=== PATIENT | female | born 1965 | race Caucasian/White ===

== ENCOUNTER 2020-12-15 03:23 | Emergency (ER) | payer BC ==
[2020-12-15] MEDS ORDERED: Famotidine 20 MG/2 ML SDV IVPUSH ONE (03:55)
[2020-12-15] MEDS ORDERED: Lactated Ringers 1,000 ML IV ONE (03:55)
[2020-12-15] MEDS ORDERED: Alum Hydrox/Mag Hydrox/Simeth 15 ML, Lidocaine 2% 5 ML PO ONE ×2 (03:55)
[2020-12-15] MEDS ORDERED: Ondansetron 4 MG/2 ML SDV IVPUSH ONE (03:55)
--- NOTE | 2020-12-15 04:04 | EDM.PDOC ---
<Bobby Garay - Last Filed: 12/15/20 06:54> ED HPI GENERAL MEDICAL PROBLEM - General Chief Complaint: Abdominal Pain Stated Complaint: STOMACH PAIN Time Seen by Provider: 12/15/20 03:27 - History of Present Illness INITIAL COMMENTS - FREE TEXT/NARRATIVE: CHIEF COMPLAINT(S): Abdominal pain HISTORY OF PRESENT ILLNESS: This is a 55-year-old woman with a past medical history of acid reflux who comes to the emergency department with a chief complaint of abdominal pain. The patient states that prior to arrival upon awakening she started to experience severe epigastric pain which she describes as intermittent rated 6 out of 10 pain. She states that it radiates to her back. She denies any associated nausea or vomiting. She denies any chest pain or shortness of breath. She states that is exacerbated after she drinks some water. She denies any relieving factors. She has not yet taken any pain medication. She denies a history of CAD, CHF or history of pancreatitis. She denies any other symptoms. REVIEW OF SYSTEMS: Constitutional: Denies fever, chills. Eyes: Denies eye pain Ears, Nose, Mouth, & Throat: Denies earache Cardiovascular: Denies chest pain Respiratory: Denies shortness of breath Gastrointestinal: Positive for abdominal pain. Denies nausea, vomiting, diarrhea, hematochezia, hematemesis, bilious emesis Genitourinary: Denies hematuria Skin:Denies a rash MSK: Denies joint pain Neurological: Denies blurred vision, numbness, tingling, weakness Psychiatric: Denies depression PAST MEDICAL HISTORY: As per history of present illness and as reviewed below otherwise noncontributory. SURGICAL HISTORY: As per history of present illness and as reviewed below otherwise noncontributory. SOCIAL HISTORY: As per history of present illness and as reviewed below otherwise noncontributory. FAMILY HISTORY: As per history of present illness and as reviewed below otherwise noncontributory. EXAMINATION OF ORGAN SYSTEMS/BODY AREAS: Constitutional: Blood pressure is 128/51, heart rate 70, respiratory rate 18 with an oxygen saturation 97% on room air. Temperature 36.0 General: Overall well-appearing woman who is in no acute distress. Obese. Psychiatric: Appropriate mood and affect. Eyes: No scleral icterus or conjunctival erythema ENMT: Moist mucous membranes. No pharyngeal erythema Cardiovascular: Regular, rate, and rhythm. No gallops, murmurs, or rubs. Bila teral upper extremity pulses symmetric and intact. No peripheral edema. No JVD. Respiratory: Lungs clear to auscultation bilaterally. No wheezes, rales, or rhonchi. Gastrointestinal: Soft, tenderness to palpation in the epigastric and right upper quadrant. Nondistended. No rebound or guarding. Negative Duckworth's. Negative McBurney's. Normoactive bowel sounds Genitourinary: No suprapubic tenderness Musculoskeletal: Normal range of motion. Skin: No lesions or abrasions. Neurological: Alert, GCS 15 MEDICAL DECISION MAKING AND COURSE IN THE ED WITH INTERPRETATION/REVIEW OF DIAGNOSTIC STUDIES: This is a 55-year-old woman with a past medical history of acid reflux who comes to the emergency department with acute onset epigastric pain with radiation to her back. The patient has stable vital signs at this time. Differential does include peptic ulcer disease, gastritis, pancreatitis, cholelithiasis. At this time we will provide the patient with 1 L of lactated Ringer's bolus. We will provide the patient with GI cocktail, 20 mg of IV famotidine, and Zofran for nausea. We will obtain CBC, CMP, lipase. We will reevaluate after treatment for peptic ulcer disease versus gastritis as the need for obtaining imaging. The patient was amenable to this plan. Laboratory: CBC is unremarkable. CMP reveals hyperchloremia at 108, kidney disease with a BUN of 23 and a creatinine of 1.6. Hyperglycemia at 135 otherwise unremarkable. Lipase is normal. Urinalysis was a clean catch and was negative for leukocyte esterase, negative for nitrites, and negative for blood. Interpretation: Negative. After medication administration the patient had continued abdominal pain that did not improve. At this time we will obtain a CT abdomen pelvis without contrast given the patient's GFR in the right upper quadrant ultrasound. We will provide the patient with 4 mg of IV morphine for pain relief. The radiological images were viewed by myself along with reading the report from the radiologist. CT abdomen pelvis without contrast as the patient has a low GFR reveals a 1 cm left adrenal gland nodule and cholelithiasis. Abdominal ultrasound of the right upper quadrant reveals hepatomegaly and fatty liver with minimal cholelithiasis and mild gallbladder wall thickening suggesting the possibility of acute cholecystitis. After patient returned from the ultrasound the patient was drowsy likely due to the morphine administration. When the patient falls asleep the patient's oxygen saturation does decrease therefore we placed 2 L nasal cannula on the patient. I did discuss the results with the patient at this time and discussed that I would like to obtain consultation from a general surgeon given the possibility of acute cholecystitis. She was amenable to this plan. I contacted Dr. Gould who stated that he would come and evaluate the patient however given no white count, fever and no obvious signs of Rosita cystitis the patient will likely need outpatient elective cholecystectomy. DISPOSITION: Patient was signed out to [facility] day team physician pending evaluation by general surgery Dr. Gould and final disposition CONDITION: Fair PROCEDURES: None FINAL IMPRESSION(S)/DIAGNOSES: 1. Acute abdominal pain, possible acute cholecystitis 2. Adrenal adenoma Bobby Garay M.D. epigastric Pain Score (Numeric/FACES): 8 - Related Data Allergies Allergy/AdvReac Type Severity Reaction Status Date / Time No Known Allergies Allergy Verified 12/15/20 03:47 Home Meds: Home Meds Acetaminophen/oxyCODONE [Percocet 325-5 MG] 1 each PO Q8HR PRN 7 Days #21 tab 12/15/20 [Rx] Bumetanide 2 mg PO DAILY 12/15/20 [History] Cyanocobalamin (Vitamin B-12) [Cyanocobalamin Injection] 1,000 mcg IJ ASDIRECTED 12/15/20 [History] Cyclobenzaprine [Flexeril] 10 mg PO DAILY 12/15/20 [History] Omeprazole 40 mg PO DAILY 12/15/20 [History] rOPINIRole [Requip] 2 mg PO BEDTIME 12/15/20 [History] Past Medical History HEENT History: Reports: None Cardiovascular History: Reports: Other (See Below) Other Cardiovascular History: Water Retention Respiratory History: Reports: None Gastrointestinal History: Reports: Other (See Below) Other Gastrointestinal History: Acid Reflux Genitourinary History: Reports: None PEDICURIST History: Reports: None Musculoskeletal History: Reports: Other (See Below) Other Musculoskeletal History: Restless Leg Neurological History: Reports: None Psychiatric History: Reports: None Endocrine/Metabolic History: Reports: None Insulin Pump Model and Cushion Mat Maker: None Hematologic History: Reports: None Immunologic History: Reports: None Oncologic (Cancer) History: Reports: None Dermatologic History: Reports: None - Infectious Disease History Infectious Disease History: Reports: None - Past Surgical History Head Surgeries/Procedures: Reports: None Social & Family History - Caffeine Use Caffeine Use: Reports: None - Recreational Drug Use Recreational Drug Use: No ED ROS GENERAL - Review of Systems Review Of Systems: See Below ED EXAM, GI/ABD - Physical Exam Exam: See Below Departure - Departure Disposition: Home, Self-Care 01 Clinical Impression: Adrenal nodule, Cholelithiasis - Discharge Information Instructions: Incidental Abnormal Radiological Finding, Cholelithiasis, [id number] Referrals: PCP,None [Primary Care Provider] - Forms: ED Department Discharge Additional Instructions: At this time you were diagnosed incidentally on your CT there was evidence of a 1 cm adrenal nodule. I do recommend follow-up with your primary care physician for further monitoring of this. The following information is given to patients seen in the emergency department who are being discharged to home. This information is to outline your options for follow-up care. We provide all patients seen in our emergency department with a follow-up referral. The need for follow-up, as well as the timing and circumstances, are variable depending upon the specifics of your emergency department visit. If you don't have a primary care physician on staff, we will provide you with a referral. We always advise you to contact your personal physician following an emergency department visit to inform them of the circumstance of the visit and for follow-up with them and/or the need for any referrals to a consulting specialist. The emergency department will also refer you to a specialist when appropriate. This referral assures that you have the opportunity for follow-up care with a specialist. All of these measure are taken in an effort to provide you with optimal care, which includes your follow-up. Under all circumstances we always encourage you to contact your private physician who remains a resource for coordinating your care. When calling for follow-up care, please make the office aware that this follow-up is from your recent emergency room visit. If for any reason you are refused follow-up, please contact the [facility] Emergency Department at and asked to speak to the emergency department charge nurse. [facility] [address] [place] [address] [facility] [address] [place] [address] My General Surgery [facility] General Surgery Professional Building [address] [place] [address], [address] [place] [address] Call the above number as soon as possible to schedule your outpatient procedure. We have also placed you on the referral list so the clinic will be aware of your case. If any symptoms are to worsen or change within this time, please return to the Emergency Department. Sepsis Event Note (ED) - Evaluation Sepsis Screening Result: No Definite Risk <Anuj Elam - Last Filed: 12/15/20 08:53> Course - Vital Signs Last Recorded V/S: Last Vital Signs Temp 96.8 F L 12/15/20 03:35 Pulse 68 12/15/20 06:15 Resp 16 12/15/20 06:15 BP 128/74 12/15/20 06:15 Pulse Ox 96 12/15/20 06:15 - Orders/Labs/Meds Labs: Laboratory Tests 12/15/20 12/15/20 12/15/20 Range/Units 03:45 03:45 04:55 WBC 10.15 (4.0-11.0) K/uL RBC 4.87 (4.30-5.90) M/uL Hgb 15.0 (12.0-16.0) g/dL Hct 46.1 H (36.0-46.0) % MCV 94.7 (80.0-98.0) fL MCH 30.8 (27.0-32.0) pg MCHC 32.5 (31.0-37.0) g/dL RDW Std Deviation 49.0 (28.0-62.0) fl RDW Coeff of Juliette 14 (11.0-15.0) % Plt Count 261 (150-400) K/uL MPV 11.50 (7.40-12.00) fL Neut % (Auto) 52.3 (48.0-80.0) % Lymph % (Auto) 39.1 (16.0-40.0) % [place] % (Auto) 6.3 (0.0-15.0) % Eos % (Auto) 1.8 (0.0-7.0) % Baso % (Auto) 0.5 (0.0-1.5) % Neut # (Auto) 5.3 (1.4-5.7) K/uL Lymph # (Auto) 4.0 H (0.6-2.4) K/uL [place] # (Auto) 0.6 (0.0-0.8) K/uL Eos # (Auto) 0.2 (0.0-0.7) K/uL Baso # (Auto) 0.1 (0.0-0.1) K/uL Nucleated RBC % 0.0 /100WBC Nucleated RBCs # 0 K/uL Sodium 144 (136-145) mmol/L Potassium 3.9 (3.5-5.1) mmol/L Chloride 108 H (98-107) mmol/L Carbon Dioxide 27.0 (21.0-32.0) mmol/L BUN 23 H (7.0-18.0) mg/dL Creatinine 1.6 H (0.6-1.0) mg/dL Est Cr Clr Drug Dosing 41.02 mL/min Estimated GFR (MDRD) 33.7 ml/min Glucose 135 H (74-106) mg/dL Calcium 8.8 (8.5-10.1) mg/dL Total Bilirubin 0.3 (0.2-1.0) mg/dL AST 19 (15-37) IU/L ALT 39 (14-63) IU/L Alkaline Phosphatase 78 (46-116) U/L Total Protein 7.5 (6.4-8.2) g/dL Albumin 3.6 (3.4-5.0) g/dL Globulin 3.9 (2.6-4.0) g/dL Albumin/Globulin Ratio 0.9 (0.9-1.6) Lipase 92 (73-393) U/L Urine Color YELLOW Urine Appearance SLT CLOUDY Urine pH 5.5 (5.0-8.0) Ur Specific [place] >= 1.030 (1.001-1.035) Urine Protein NEGATIVE (NEGATIVE) mg/dL Urine Glucose (UA) NEGATIVE (NEGATIVE) mg/dL Urine Ketones NEGATIVE (NEGATIVE) mg/dL Urine Occult Blood NEGATIVE (NEGATIVE) Urine Nitrite NEGATIVE (NEGATIVE) Urine Bilirubin NEGATIVE (NEGATIVE) Urine Urobilinogen 0.2 (<2.0) EU/dL Ur Leukocyte Esterase NEGATIVE (NEGATIVE) SARS-CoV-2 RNA (DEVON) (NEGATIVE) 12/15/20 Range/Units 06:05 WBC (4.0-11.0) K/uL RBC (4.30-5.90) M/uL Hgb (12.0-16.0) g/dL Hct (36.0-46.0) % MCV (80.0-98.0) fL MCH (27.0-32.0) pg MCHC (31.0-37.0) g/dL RDW Std Deviation (28.0-62.0) fl RDW Coeff of Juliette (11.0-15.0) % Plt Count (150-400) K/uL MPV (7.40-12.00) fL Neut % (Auto) (48.0-80.0) % Lymph % (Auto) (16.0-40.0) % [place] % (Auto) (0.0-15.0) % Eos % (Auto) (0.0-7.0) % Baso % (Auto) (0.0-1.5) % Neut # (Auto) (1.4-5.7) K/uL Lymph # (Auto) (0.6-2.4) K/uL [place] # (Auto) (0.0-0.8) K/uL Eos # (Auto) (0.0-0.7) K/uL Baso # (Auto) (0.0-0.1) K/uL Nucleated RBC % /100WBC Nucleated RBCs # K/uL Sodium (136-145) mmol/L Potassium (3.5-5.1) mmol/L Chloride (98-107) mmol/L Carbon Dioxide (21.0-32.0) mmol/L BUN (7.0-18.0) mg/dL Creatinine (0.6-1.0) mg/dL Est Cr Clr Drug Dosing mL/min Estimated GFR (MDRD) ml/min Glucose (74-106) mg/dL Calcium (8.5-10.1) mg/dL Total Bilirubin (0.2-1.0) mg/dL AST (15-37) IU/L ALT (14-63) IU/L Alkaline Phosphatase (46-116) U/L Total Protein (6.4-8.2) g/dL Albumin (3.4-5.0) g/dL Globulin (2.6-4.0) g/dL Albumin/Globulin Ratio (0.9-1.6) Lipase (73-393) U/L Urine Color Urine Appearance Urine pH (5.0-8.0) Ur Specific [place] (1.001-1.035) Urine Protein (NEGATIVE) mg/dL Urine Glucose (UA) (NEGATIVE) mg/dL Urine Ketones (NEGATIVE) mg/dL Urine Occult Blood (NEGATIVE) Urine Nitrite (NEGATIVE) Urine Bilirubin (NEGATIVE) Urine Urobilinogen (<2.0) EU/dL Ur Leukocyte Esterase (NEGATIVE) SARS-CoV-2 RNA (DEVON) NEGATIVE (NEGATIVE) Meds: Medications Discontinued Medications Generic Name Dose Route Start Last Admin Trade Name Freq PRN Reason Stop Dose Admin Al Hydroxide/Mg Hydroxide 15 0 ml 12/15/20 03:55 12/15/20 04:06 ml/ Lidocaine HCl 5 ml PO 12/15/20 03:56 20 each ONETIME ONE Administration Famotidine 20 mg 12/15/20 03:55 12/15/20 04:06 Famotidine 20 Mg/2 Ml Sdv IVPUSH 12/15/20 03:56 20 mg ONETIME ONE Administration Lactated Ringer's 1,000 mls @ 999 mls/hr 12/15/20 03:55 12/15/20 04:06 Ringers, Lactated IV 12/15/20 04:55 999 mls/hr .BOLUS ONE Administration Morphine Sulfate 4 mg 12/15/20 04:37 12/15/20 05:00 Morphine 4 Mg/Ml Syringe IVPUSH 12/15/20 04:38 4 mg ONETIME ONE Administration Ondansetron HCl 4 mg 12/15/20 03:55 12/15/20 04:06 Ondansetron 4 Mg/2 Ml Sdv IVPUSH 12/15/20 03:56 4 mg ONETIME ONE Administration - Re-Assessments/Exams Free Text/Narrative Re-Assessment/Exam: 12/15/20 08:51 Patient was signed out to me by previous attending. Patient was pending consult from surgery for cholelithiasis. Patient is very surgery and will have follow- up to likely have gallbladder removed. Patient is okay with this plan and was given strict return precautions. Departure - Departure Time of Disposition: 08:52 Condition: Good - Discharge Information *PRESCRIPTION DRUG MONITORING PROGRAM REVIEWED*: Not Applicable *COPY OF PRESCRIPTION DRUG MONITORING REPORT IN PATIENT THANH: Not Applicable Sepsis Event Note (ED) - Focused Exam Vital Signs: Vital Signs Temp Pulse Resp BP Pulse Ox 12/15/20 06:15 68 16 128/74 96 12/15/20 05:02 68 18 136/80 97 12/15/20 03:35 96.8 F L 70 18 128/51 L 97
[2020-12-15 04:13] LABS: POTASSIUM,K 3.9 mmol/L (3.5-5.1)
[2020-12-15] MEDS ORDERED: Morphine 4 MG/ML Syringe IVPUSH ONE (04:37)
--- NOTE | 2020-12-15 05:31 | CT ---
INDICATION: Epigastric and right upper quadrant pain TECHNIQUE: CT abdomen and pelvis without contrast. Patient had low GFR. COMPARISON: None FINDINGS: Lower chest: Unremarkable. Liver: Unremarkable. Spleen: Unremarkable. Pancreas: Unremarkable. Gallbladder and bile ducts: Cholelithiasis. Adrenal glands: 1.0 cm left adrenal gland nodule measuring 25 Hounsfield units in density. Kidneys: Unremarkable. No kidney or ureteral stones and no hydronephrosis. GI tract: Normal appendix. Vascular structures: Unremarkable. Lymph nodes: Unremarkable. Miscellaneous: Unremarkable. No free air or significant free fluid. Pelvic Organs: Unremarkable. Bones: Unremarkable for age. IMPRESSION: No acute intra-abdominal process identified. Cholelithiasis. Indeterminate 1.0 cm left adrenal gland nodule. Consider adrenal CT or comparison with any prior imaging. Please note that all CT scans at this facility use dose modulation, iterative reconstruction, and/or weight-based dosing when appropriate to reduce radiation dose to as low as reasonably achievable. Dictated by Maria Elena Covarrubias MD @ 12/15/2020 5:30:[address] Maria Elena Covarrubias @ Dec 15 2020 5:30AM
--- NOTE | 2020-12-15 06:05 | US ---
INDICATION: Right upper quadrant abdomen pain TECHNIQUE: Ultrasound abdomen limited. Sonographic images of the right upper quadrant were obtained using chao-scale and color Doppler images. COMPARISON: CT abdomen pelvis December 15, 2020. FINDINGS: Liver: Enlarged measuring to 22 cm in length. Parenchyma is diffusely echogenic suggesting fatty infiltration. No masses. No intrahepatic biliary dilatation. Gallbladder: Small stone is present in the gallbladder neck. Minimal sludge. Mild wall thickening measuring 3-4 mm. Common bile duct: 6 mm. Pancreas: Normal. Right kidney: Normal in size. Normal echotexture and cortex. No suspicious masses, stones, or hydronephrosis. Vasculature: Proximal abdominal aorta and IVC are normal. IMPRESSION: 1. Minimal cholelithiasis and mild gallbladder wall thickening suggesting the possibility of acute cholecystitis. 2. Nonspecific hepatomegaly and hepatic steatosis. Dictated by Valentin Ugalde MD @ 12/15/2020 6:03:[address] Valentin Ugalde @ Dec 15 2020 6:03AM
--- NOTE | 2020-12-15 11:30 | CONS ---
DATE OF CONSULTATION: 12/15/2020 DATE OF : 1965 PRIMARY CARE PHYSICIAN: None PCP HISTORY OF PRESENT ILLNESS: The patient is a pleasant 55-year-old female. She said she awoke last night with epigastric pain. This pain did radiate into her back. The patient denies any fevers or chills. She denies any nausea or vomiting. The patient says she does have a history of heartburn. The patient says this felt different than her typical GERD symptoms. She did come to the ER for evaluation. In the ER, she did have a CT scan, which showed a 1-cm left adrenal gland nodule and cholelithiasis. She then went on to do an ultrasound, which showed a small stone in the neck of the gallbladder with minimal wall thickening of 3 to 4 mm. Common bile duct was 6 mm. No pericholecystic fluid. No intrahepatic biliary dilation. She did have some nonspecific hepatomegaly and hepatic steatosis. The patient was given some pain medications. Currently, the patient says her pain has completely resolved and is feeling good other than a little bit tired from being up. PAST MEDICAL HISTORY: 1. GERD. 2. Sleep apnea. 3. Restless legs syndrome. 4. Water retention. ALLERGIES: No known drug allergies. HOME MEDICATIONS: 1. Requip 2 mg p.o. at bedtime. 2. Omeprazole 40 mg p.o. daily. 3. Flexeril 10 mg p.o. daily. 4. Vitamin B12 injection as directed. 5. Bumetanide 2 mg p.o. daily. PAST SURGICAL HISTORY: Patient denies any. FAMILY HISTORY: Mother had diabetes and leukemia. Father had multitude of problems that she says all rise from his exposure to Agent [place]. SOCIAL HISTORY: Patient smokes half to 3/4 of a pack of cigarettes per day. Rare alcohol use. Denies illicit drug use. REVIEW OF SYSTEMS: Complete 12+ review of systems was done and was negative for what was in HPI. PHYSICAL EXAMINATION: GENERAL: The patient is lying comfortably in the ER bed. She is alert and oriented, in no acute distress. VITAL SIGNS: Temperature is 96.8, pulse is 68, blood pressure is 128/74, and saturating 96%. HEENT: Head is normocephalic, atraumatic. LUNGS: Clear to auscultation bilaterally. No rhonchi or wheezing heard. HEART: Regular rate and rhythm. No murmur appreciated. ABDOMEN: Soft, nontender, nondistended. NEUROLOGIC: Grossly no motor or neurologic deficit noted. ASSESSMENT AND PLAN: The patient is a pleasant 55-year-old female who came in with epigastric pain. No white cell count. No LFT elevations. She did have an ultrasound which showed gallstone and sludge and mild thickening of the gallbladder wall at 3 to 4 mm. Currently, patient's pain has resolved and she is feeling good. I did go over with the patient what a gallbladder was. I went over its functionality. We went over laparoscopic cholecystectomy. We went over risks, goals, alternatives of the procedure. Risks include, but not limited to, bleeding, infection, bile leak, retained gallstones, injury to nearby structures such as common bile duct or duodenum, hernia formation, and that this could be something other than her gallbladder causing pain today. The patient understands. I did go over with the patient that we could potentially do her surgery today or she could do it as an outpatient since she has resolution of her pain and no changes in her LFTs. The patient would like to do it as an outpatient. She will follow up with me in clinic. I did go over if the patient does have another gallbladder attack or worsening symptoms, she will need to return to the ER for further evaluation. The patient understands. Also, the patient should follow up with her primary care provider for her left adrenal gland nodule. The patient understands. I did discuss plan with the patient and the ER physician. TOMAS PANCHAL /[id number]
== END 2020-12-15 08:58 | disposition home or self-care (01) ==
LOC: MW.ED 03:23
DX: R10.13 Epigastric pain (principal); E27.8 Other specified disorders of adrenal gland; G25.81 Restless legs syndrome; K21.9 Gastro-esophageal reflux disease without esophagitis; Z79.899 Other long term (current) drug therapy; Z20.822 Contact with and (suspected) exposure to COVID-19
CPT/HCPCS: 36415; 74176; 76705; 80053; 81003; 83690; 85025; 87635; 96374; 96375; 99284; A9270; J2270; J2405; J3490; J7120; U0002

== ENCOUNTER 2021-01-21 18:40 | Emergency (ER) | payer BC ==
[2021-01-21] MEDS ORDERED: Ketorolac 30 MG/ML SDV IM ONE (20:03)
--- NOTE | 2021-01-21 20:09 | EDM.PDOC ---
ED HPI GENERAL MEDICAL PROBLEM - General Chief Complaint: Lower Extremity Injury/Pain Stated Complaint: HIP PAIN Time Seen by Provider: 01/21/21 18:52 - History of Present Illness INITIAL COMMENTS - FREE TEXT/NARRATIVE: History of present illness: [] Patient has severe pain in the right hip that radiates down the posterior right thigh. This is similar to prior sciatica. She saw a teledoc and is on the last day of a Medrol Dosepak. The patient says the pain is severe but not associated with neurologic findings or loss of control of bowel or bladder. Similar to prior sciatica. She is sleeping in the recliner after gallbladder surgery because of her pain. She is recovering uneventfully and without any other unexpected complications. She is up and about went to work today. Review of systems: As per history of present illness and below otherwise all systems reviewed and negative. Past medical history: As per history of present illness and as reviewed below otherwise noncontributory. Surgical history: As per history of present illness and as reviewed below otherwise noncontributory. Social history: No reported history of drug or alcohol abuse. Family history: As per history of present illness and as reviewed below otherwise noncontributory. Physical exam: Constitutional - well developed, well-nourished and in no acute distress HEENT - normocephalic, no evidence of trauma - external nose and mouth normal - no mass in neck and no JVD - mucosae moist EYES - full EOM, PERRL, no icterus - no evidence of inflammation, injection, or drainage Respiratory - no respiratory distress, equal bilateral expansion Musculoskeletal tenderness in the posterior hip and posterior thigh. Right leg raise right and left cause no radicular pain. No gross deformity of long bones or joints - no tenderness, swelling or edema. Feet look symmetric. Neurologic - Alert and oriented times four - CN II-XII grossly intact - motor sensory and coordination symmetrically normal Psychiatric - appropriate mood and affect with normal thought content Hematologic -feet look symmetric. No petechiae or purpura - mucosa appropriate color and sclera not pale - normal nail bed color and refill Integument - no rash or evidence of trauma - normal turgor Diagnostics: [] Therapeutics: [] Impression: [] Plan: [] Definitive disposition and diagnosis as appropriate pending reevaluation and review of above. Right Hip Pain Score (Numeric/FACES): 0 - Related Data Allergies Allergy/AdvReac Type Severity Reaction Status Date / Time No Known Allergies Allergy Verified 01/21/21 19:50 Home Meds: Home Meds Bumetanide 2 mg PO DAILY 12/15/20 [History] Cyanocobalamin (Vitamin B-12) [Cyanocobalamin Injection] 1,000 mcg IJ ASDIRECTED 12/15/20 [History] Cyclobenzaprine [Flexeril] 10 mg PO DAILY 12/15/20 [History] Omeprazole 40 mg PO DAILY 12/15/20 [History] rOPINIRole [Requip] 2 mg PO BEDTIME 12/15/20 [History] Acetaminophen/oxyCODONE [Percocet 325-5 MG] 1 - 2 each PO Q6HR PRN #20 tab 01/21/21 [Rx] diazePAM [Valium] 5 mg PO TID PRN #15 tab 01/21/21 [Rx] predniSONE [Prednisone] 60 mg PO DAILY #21 tablet 01/21/21 [Rx] Past Medical History HEENT History: Reports: Allergic Rhinitis, Other (See Below) Other HEENT History: uses reading glasses, has constant ringing in her ears Cardiovascular History: Reports: None Other Cardiovascular History: Water Retention Respiratory History: Reports: Sleep Apnea Other Respiratory History: uses CPAP every night Gastrointestinal History: Reports: GERD Other Gastrointestinal History: Acid Reflux Genitourinary History: Reports: None STOCK HANDLER History: Reports: None Musculoskeletal History: Reports: Neck Pain, Chronic Other Musculoskeletal History: Restless Leg Neurological History: Reports: Other (See Below) Other Neuro History: has restless leg syndrome Psychiatric History: Reports: None Endocrine/Metabolic History: Reports: Obesity/BMI 30+ 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 Hematologic History: Reports: None Immunologic History: Reports: None Oncologic (Cancer) History: Reports: None Dermatologic History: Reports: Eczema - Infectious Disease History Infectious Disease History: Reports: Chicken Pox - Past Surgical History Head Surgeries/Procedures: Reports: None HEENT Surgical History: Reports: None Cardiovascular Surgical History: Reports: None Respiratory Surgical History: Reports: None GI Surgical History: Reports: None Female Surgical History: Reports: None Endocrine Surgical History: Reports: None Neurological Surgical History: Reports: None Musculoskeletal Surgical History: Reports: None Oncologic Surgical History: Reports: None Social & Family History - Tobacco Use Tobacco Use Status *Q: Current Every Day Tobacco User Years of Tobacco use: 30 Packs/Tins Daily: 1 - Caffeine Use Caffeine Use: Reports: None - Recreational Drug Use Recreational Drug Use: No Review of Systems - Review of Systems Review Of Systems: Comprehensive ROS is negative, except as noted in HPI. ED EXAM, GENERAL - Physical Exam Exam: See Below Free Text/Narrative:: My physical exam is in the HPI Course - Vital Signs Last Recorded V/S: Last Vital Signs Temp 36.7 C 01/21/21 19:46 Pulse 85 01/21/21 19:46 Resp 18 01/21/21 19:46 BP 138/72 01/21/21 19:46 Pulse Ox 98 01/21/21 19:46 - Orders/Labs/Meds Meds: Medications Discontinued Medications Generic Name Dose Route Start Last Admin Trade Name Freq PRN Reason Stop Dose Admin Ketorolac Tromethamine 30 mg 01/21/21 20:03 Ketorolac 30 Mg/Ml Sdv IM 01/21/21 20:04 ONETIME ONE Departure - Departure Time of Disposition: 20:15 Disposition: Home, Self-Care 01 Condition: Good Clinical Impression: Sciatica - Discharge Information Prescriptions: Acetaminophen/oxyCODONE [Percocet 325-5 MG] 1 - 2 each PO Q6HR PRN #20 tab PRN Reason: Pain (Severe 7-10) predniSONE [Prednisone] 60 mg PO DAILY #21 tablet diazePAM [Valium] 5 mg PO TID PRN #15 tab PRN Reason: Spasms Instructions: Sciatica Referrals: PCP,None [Primary Care Provider] - Additional Instructions: You must return immediately if you have back pain associated with loss of feeling or sensation or movement in your lower extremities or feeling in her buttocks. You also must return immediately if you lose control of your bowel or bladder. [facility] - Primary [facility] [address] [place] [id number] [id number] The following information is given to patients seen in the emergency department who are being discharged to home. This information is to outline your options for follow-up care. We provide all patients seen in our emergency department with a follow-up referral. The need for follow-up, as well as the timing and circumstances, are variable depending upon the specifics of your emergency department visit. If you don't have a primary care physician on staff, we will provide you with a referral. We always advise you to contact your personal physician following an emergency department visit to inform them of the circumstance of the visit and for follow-up with them and/or the need for any referrals to a consulting specialist. The emergency department will also refer you to a specialist when appropriate. This referral assures that you have the opportunity for follow-up care with a specialist. All of these measure are taken in an effort to provide you with optimal care, which includes your follow-up. Under all circumstances we always encourage you to contact your private physician who remains a resource for coordinating your care. When calling for follow-up care, please make the office aware that this follow-up is from your recent emergency room visit. If for any reason you are refused follow-up, please contact the [facility] Emergency Department at and asked to speak to the emergency department charge nurse. Sepsis Event Note (ED) - Evaluation Sepsis Screening Result: No Definite Risk - Focused Exam Vital Signs: Vital Signs Temp Pulse Resp BP Pulse Ox 01/21/21 19:46 36.7 C 85 18 138/72 98
== END 2021-01-21 20:21 | disposition home or self-care (01) ==
LOC: MW.ED 18:40
DX: M54.31 Sciatica, right side (principal); K21.9 Gastro-esophageal reflux disease without esophagitis; G25.81 Restless legs syndrome; E66.9 Obesity, unspecified; Z79.899 Other long term (current) drug therapy; Z72.0 Tobacco use
CPT/HCPCS: 96372; 99283; J1885

== ENCOUNTER → 2021-11-10 | Day surgery (SDC) | payer BC ==
[~2021-11-10] MED LIST: Albuterol 0.083% 2.5 MG/3 ML Neb Soln NEB PRN; Bupivacaine 0.25%/EPINEPHrine 1:200,000 10 ML SDV ONE; Dexamethasone 4 MG/ML 5 ML MDV ONE; Glycopyrrolate 0.2 MG/ML SDV ONE; HYDROmorphone 1 MG/ML Syringe IVPUSH PRN; Ketorolac 30 MG/ML SDV ONE; Lactated Ringers 1,000 ML IV SCH; Lidocaine 1% 20 ML MDV ONE; Lidocaine 1% with EPINEPHrine 1:100,000 10 ML MDV ONE; Metoclopramide 10 MG/2 ML SDV IVPUSH PRN; Midazolam 1 MG/ML 2 ML SDV ONE; Naloxone 0.4 MG/ML SDV IVPUSH PRN; Ondansetron 4 MG/2 ML SDV IVPUSH PRN; Propofol 200 MG/20 ML SDV ONE; Water For Injection, Sterile 20 ML ONE; ceFAZolin 1 GM Vial ONE; ceFAZolin 2 GM in Premix Bag 1 BAG IV SCH; fentaNYL 100 MCG/2 ML SDV ONE
[2021-11-10] MEDS: fentaNYL 100 MCG/2 ML SDV IVPUSH PRN ×2 (11:28→11:34)
[2021-11-10] MEDS: HYDROmorphone 2 MG/ML Syringe ONE ×2 (12:08→13:22)
== END | disposition home or self-care (01) ==
LOC: MW.SDS 08:32
PROVIDERS: ATTEND Orthopaedic Surgery
DX: S83.232A Complex tear of medial meniscus, current injury, left knee, initial encounter (principal); M17.12 Unilateral primary osteoarthritis, left knee; F17.210 Nicotine dependence, cigarettes, uncomplicated; K21.9 Gastro-esophageal reflux disease without esophagitis; G47.33 Obstructive sleep apnea (adult) (pediatric); E66.01 Morbid (severe) obesity due to excess calories; Z90.49 Acquired absence of other specified parts of digestive tract; Z79.899 Other long term (current) drug therapy; X58.XXXA Exposure to other specified factors, initial encounter; Z68.42 Body mass index [BMI] 45.0-49.9, adult
CPT/HCPCS: 29881; J0131; J0690; J1100; J1170; J1885; J2250; J2704; J3010; J3490; J7120; 01400

== ENCOUNTER 2021-11-19 14:33 | Emergency (ER) | payer BC | END 2021-11-19 16:46 | disposition home or self-care (01) | LOC: MW.ED 14:33 | DX: M79.662 Pain in left lower leg (principal); K21.9 Gastro-esophageal reflux disease without esophagitis; F17.200 Nicotine dependence, unspecified, uncomplicated; Z79.899 Other long term (current) drug therapy | CPT/HCPCS: 93971-26-LT; 93971-LT; 99283; 99283-25 ==